=== PATIENT | male | born 1955 | race Hispanic/Latino ===

== ENCOUNTER 2022-08-19 14:55 | Emergency (ER) | payer OTHER ==
[~2022-08-19] VITALS: Ht 172.7 cm; Wt 72.6 kg
[2022-08-19 14:58] VITALS: BP 129/76
[2022-08-19] MEDS ORDERED: NAPR-1180 PO (15:20)
[2022-08-19] MEDS ORDERED: CYCL10TA16 PO (15:20)
[2022-08-19] MEDS ORDERED: CYCLOBENZAPRINE HCL 10 MG TABLET PO ONE (15:30)
[2022-08-19] MEDS ORDERED: KETOROLAC 60 MG VIAL (30MG/ML) IM ONE (15:30)
== END 2022-08-19 15:47 | disposition home or self-care (01) ==
LOC: EDH 14:55
DX: S46.911A Strain of unspecified muscle, fascia and tendon at shoulder and upper arm level, right arm, initial encounter (principal); E11.9 Type 2 diabetes mellitus without complications; E78.00 Pure hypercholesterolemia, unspecified; I11.9 Hypertensive heart disease without heart failure; E03.9 Hypothyroidism, unspecified; Z98.890 Other specified postprocedural states; X50.0XXA Overexertion from strenuous movement or load, initial encounter; Y93.89 Activity, other specified; Y92.89 Other specified places as the place of occurrence of the external cause; Y99.8 Other external cause status
CPT/HCPCS: 73030; 93005; J1885

== ENCOUNTER 2022-10-29 11:19 | Emergency (ER) | payer OTHER ==
[~2022-10-29] VITALS: Ht 172.7 cm; Wt 72.6 kg
[~2022-10-29 11:19] MED LIST: CYCL10TA16 PO; NAPR-1180 PO
[2022-10-29 12:57] LABS: BASOPHILS % (AUTO) 0.4 % (0.0-5.0); HEMATOCRIT 37.1 % (42-54); LYMPHOCYTES % (AUTO) 20.6 % (21.0-51.0); MEAN CORPUSCULAR HGB CONC 35.3 g/dL (32.0-36.0); MEAN CORPUSCULAR VOLUME 90.7 fL (79-99); MONOCYTES % (AUTO) 7.1 % (3.0-13.0); NEUTROPHILS % (AUTO) 67.6 % (40.0-77.0); PLATELET COUNT (AUTO) 139 K/uL (130-400); RED BLOOD CELL COUNT(AUTO) 4.09 MIL/uL (4.50-6.20); RED CELL DISTRIBUTION WIDTH 12.4 % (11.0-15.5); WHITE BLOOD COUNT (AUTO) 6.8 K/uL (4.8-10.8)
[2022-10-29 13:05] LABS: APPEARANCE,URINE CLEAR (CLEAR); BILIRUBIN,URINE NEGATIVE (NEGATIVE); COLOR,URINE COLORLESS (YELLOW); GLUCOSE, URINE (UA) NEGATIVE (NEGATIVE); KETONES,URINE NEGATIVE (NEGATIVE); LEUKOCYTE ESTERASE ,URINE NEGATIVE Leu/uL (NEGATIVE); NITRATE,URINE NEGATIVE (NEGATIVE); OCCULT BLOOD,URINE NEGATIVE (NEGATIVE); PH,URINE 5.5 (5.0-8.0); PROTEIN,URINE 10 mg/dL (NEGATIVE); UROBILINOGEN,URINE 0.2 mg/dL (0.2-1.0)
[2022-10-29 13:05] LABS: CARBON DIOXIDE 26 mmol/L (21-32); CHLORIDE 104 mmol/L (101-111); CREATININE 0.8 mg/dL (0.5-1.5); GLOMERULAR FILTR. RATE CALC 102 mL/min (>60); GLUCOSE,RANDOM 145 mg/dL (70-105); POTASSIUM 5.2 mmol/L (3.5-5.1); SODIUM SERUM 138 mmol/L (136-145); UREA NITROGEN, BLOOD 25 mg/dL (7-18)
[2022-10-29 13:10] LABS: ALANINE AMINOTRANSFERASE 19 U/L (12-78); TOTAL PROTEIN, SERUM 7.6 g/dL (6.0-8.3)
[2022-10-29 13:11] LABS: ALBUMIN 3.6 g/dL (3.5-5.0); ASPARTATE AMINOTRANSFERASE 18 U/L (10-37); CREATINE KINASE, TOTAL 67 U/L (21-232)
[2022-10-29 13:22] LABS: CRP QUANTITATIVE < 2.00 mg/L (0.00-9.0)
[2022-10-29] MEDS ORDERED: AMOX-426 PO (14:29)
[2022-10-29] MEDS ORDERED: CEFTRIAXONE 1G VIAL IVP ONE (14:30)
[2022-10-29 15:18] VITALS: BP 155/92
== END 2022-10-29 15:24 | disposition home or self-care (01) ==
LOC: EDH 11:19
DX: S99.922A Unspecified injury of left foot, initial encounter (principal); E11.9 Type 2 diabetes mellitus without complications; I10 Essential (primary) hypertension; Z79.1 Long term (current) use of non-steroidal anti-inflammatories (NSAID); X58.XXXA Exposure to other specified factors, initial encounter; Y93.89 Activity, other specified; Y92.89 Other specified places as the place of occurrence of the external cause; Y99.8 Other external cause status
CPT/HCPCS: 99284; 96374; 82550; 80053; 85025; 83605; 86140; 81001; 36415; 73630; J0696

== ENCOUNTER 2022-10-30 09:47 | Emergency (ER) | payer OTHER ==
[~2022-10-30] VITALS: Ht 172.7 cm; Wt 72.6 kg
[~2022-10-30 09:47] MED LIST changes: +AMOX-426 PO
[2022-10-30 11:16] VITALS: BP 112/78
== END 2022-10-30 11:19 | disposition home or self-care (01) ==
LOC: EDH 09:47
DX: Z00.00 Encounter for general adult medical examination without abnormal findings (principal); M79.675 Pain in left toe(s); I11.9 Hypertensive heart disease without heart failure; E11.9 Type 2 diabetes mellitus without complications; E78.00 Pure hypercholesterolemia, unspecified; Z85.9 Personal history of malignant neoplasm, unspecified; Z98.890 Other specified postprocedural states

== ENCOUNTER 2023-04-05 04:44 | Inpatient (IN) | payer OTHER ==
[~2023-04-05] VITALS: Ht 172.7 cm; Wt 82.5 kg
[2023-04-05] VITALS (13 sets, daily range): BP systolic 95–133; BP diastolic 49–92
[~2023-04-05 04:44] MED LIST changes: +ACET-66 PO; -AMOX-426 PO; -CYCL10TA16 PO; +LISI2.5T13 PO; +LOSA50TA64 PO; +METF-445 PO; +METO25TA6 PO; -NAPR-1180 PO; +PRAV10TA39 PO
[2023-04-05] MEDS ORDERED: ONDANSETRON 4MG INJ IVP ONE (05:00)
[2023-04-05 05:37] LABS: BASOPHILS % (AUTO) 0.1 % (0.0-5.0); EOSINOPHILS % (AUTO) 0.1 % (0.0-8.0); LYMPHOCYTES % (AUTO) 4.6 % (21.0-51.0); MEAN CORPUSCULAR HEMOGLOBIN 30.1 pg (27.0-33.0); MEAN CORPUSCULAR HGB CONC 32.4 g/dL (32.0-36.0); MEAN CORPUSCULAR VOLUME 92.9 fL (79-99); NEUTROPHILS % (AUTO) 91.5 % (40.0-77.0); PLATELET COUNT (AUTO) 177 K/uL (130-400); RED BLOOD CELL COUNT(AUTO) 1.96 MIL/uL (4.50-6.20); RED CELL DISTRIBUTION WIDTH 14.3 % (11.0-15.5)
[2023-04-05 05:39] LABS: HEMATOCRIT 18.2 % (42-54)
[2023-04-05 05:55] LABS: INR 2.54 (0.85-1.15); PARTIAL THROMBOPLASTIN TIME 66.4 SEC (26.3-35.5); PROTHROMBIN TIME 26.3 SEC (9.6-11.6)
[2023-04-05 06:15] LABS: ALBUMIN 0.8 g/dL (3.5-5.0); CHLORIDE 119 mmol/L (101-111); CREATININE 1.3 mg/dL (0.5-1.5); GLOMERULAR FILTR. RATE CALC 60 mL/min (>90); GLUCOSE,RANDOM 79 mg/dL (70-105); SODIUM SERUM 141 mmol/L (136-145); UREA NITROGEN, BLOOD 50 mg/dL (7-18)
[2023-04-05 06:20] LABS: ALANINE AMINOTRANSFERASE 64 U/L (12-78); ASPARTATE AMINOTRANSFERASE 90 U/L (10-37); CREATINE KINASE, TOTAL 17 U/L (21-232); LIPASE 184 U/L (114-286); TOTAL PROTEIN, SERUM 2.9 g/dL (6.0-8.3)
[2023-04-05] MEDS ORDERED: PHENYLEPHRINE HCL 10 MG in 0.9% NACL 250ML 250 ML IV PRN (06:30)
[2023-04-05 06:34] LABS: CARBON DIOXIDE 6 mmol/L (21-32); POTASSIUM 2.4 mmol/L (3.5-5.1)
[2023-04-05] MEDS ORDERED: CALCIUM GLUC 1GM/10ML VIAL ONE (06:39)
[2023-04-05] MEDS ORDERED: POTASSIUM CHLORIDE 20MEQ/100ML 100 ML IV ONE (06:39)
[2023-04-05] MEDS ORDERED: PHENYLEPHRINE HCL 10 MG/ML 1ML VIAL IV ONE ×4 (06:43→23:55)
[2023-04-05] MEDS ORDERED: POTASSIUM CHLORIDE 20MEQ/10ML 10 MEQ in 0.9%NACL 50ML 50 ML IV SCH ×4 (07:00)
[2023-04-05] MEDS ORDERED: VANCOMYCIN KIT 1 GM/250 ML IV.KIT IV SCH (07:00)
[2023-04-05] MEDS ORDERED: MEROPENEM 1 GM VIAL IVPB SCH (07:00)
[2023-04-05] MEDS ORDERED: 0.9%NACL 50ML IV SCH (07:00)
[2023-04-05] MEDS: POTASSIUM CHLORIDE 10MEQ/100ML 10 MEQ/100 ML ML IV SCH (07:00)
[2023-04-05] MEDS: CALCIUM GLUC 1GM/10ML VIAL IVPB SCH (07:31)
[2023-04-05 07:55] LABS: ABG BASE EXCESS -16.5 mmol/L (-2.0-3.0); ABG HCO3 8.1 mmol/L (21.0-28.0); ABG PCO2 19 mmHg (35-48)
[2023-04-05] MEDS ORDERED: SODIUM BICARB 50MEQ 50ML VIAL IV SCH (08:32)
[2023-04-05] MEDS ORDERED: SODIUM BICARB 50MEQ 50ML VIAL 50 ML ONE (08:46)
[2023-04-05] MEDS: SODIUM BICARB 8.4% 50ML SYRING 150 MEQ in DEXTROSE 5%-WATER 1,000 ML IVP SCH ×2 (08:46→18:08)
[2023-04-05] MEDS ORDERED: MORPHINE 2 MG SYG IVP PRN (09:00)
[2023-04-05] MEDS ORDERED: 0.9%NACL 1000ML 1,368 ML IV ONE (09:00)
[2023-04-05] MEDS ORDERED: INSULIN HUMULIN R 100 UNIT/ML 3ML IV SCH (09:00)
[2023-04-05] MEDS ORDERED: ACETAMINOPHEN 650 MG SUPPOSITORY RC PRN (09:00)
[2023-04-05] MEDS ORDERED: LACTULOSE 20 GM/30 ML UDCUP PO PRN (09:00)
[2023-04-05] MEDS ORDERED: DEXTROSE 50%-WATER 50 ML DISP.SYRIN IV SCH (09:00)
[2023-04-05] MEDS ORDERED: INSULIN HUMULIN R 100 UNIT/ML 3ML ONE ×2 (09:30→20:26)
[2023-04-05] MEDS ORDERED: PANTOPRAZOLE 40 MG/VIAL IVP ONE (10:05)
[2023-04-05 10:09] LABS: ABG BASE EXCESS -6.7 mmol/L (-2.0-3.0); ABG HCO3 20.3 mmol/L (21.0-28.0); ABG OXYGEN SATURATION 48.5 % (95.0-99.0); ABG PCO2 47 mmHg (35-48)
[2023-04-05] MEDS ORDERED: 0.9%NACL 1000ML 1,368 ML IV SCH (10:30)
[2023-04-05] MEDS ORDERED: PANTOPRAZOLE 40 MG/VIAL IVP SCH (10:30)
[2023-04-05] MEDS: 0.9%NACL 1000ML 1,000 ML IV SCH ×2 (10:44→18:08)
[2023-04-05 10:49] LABS: HEMATOCRIT 40.2 % (42-54)
[2023-04-05] MEDS: CEFEPIME HCL 1 GM VIAL IV SCH (10:57)
[2023-04-05] MEDS: OCTREOTIDE ACETATE 1,250 MCG in 0.9% NACL 250ML 250 ML IV SCH (10:57)
[2023-04-05 11:06] LABS: INR 2.13 (0.85-1.15); PROTHROMBIN TIME 22.2 SEC (9.6-11.6)
[2023-04-05 11:12] LABS: THYROID STIMULATING HORMONE 9.31 uIU/mL (0.36-3.74)
[2023-04-05] MEDS: VASOPRESSIN 20 UNITS in 0.9%NACL 100ML 99 ML IV PRN ×2 (11:57→13:09)
[2023-04-05] MEDS: PHENYLEPHRINE HCL 10 MG in 0.9% NACL 250ML 250 ML IV SCH (13:10)
[2023-04-05 16:14] LABS: HEMATOCRIT 52.6 % (42-54)
[2023-04-05 17:51] LABS: ABG BASE EXCESS -11.5 mmol/L (-2.0-3.0); ABG HCO3 13.9 mmol/L (21.0-28.0); ABG OXYGEN SATURATION 28.3 % (95.0-99.0); ABG PCO2 31 mmHg (35-48)
[2023-04-05 18:55] LABS: CREATININE 2.8 mg/dL (0.5-1.5); POTASSIUM 5.8 mmol/L (3.5-5.1)
[2023-04-05] MEDS ORDERED: PHYTONADIONE 10 MG in 0.9%NACL 50ML 50 ML IVPB ONE ×2 (20:00)
[2023-04-05] MEDS ORDERED: EPINEPHRINE 1 MG/ML 30ML VIAL IJ ONE (20:18)
[2023-04-05] MEDS ORDERED: CEFAZOLIN SODIUM 1 GM VIAL ONE ×2 (20:18→21:13)
[2023-04-05] MEDS ORDERED: ETOMIDATE 20MG VIAL ONE (20:23)
[2023-04-05] MEDS ORDERED: SODIUM BICARB 8.4% 50ML SYRINGE ONE (20:23)
[2023-04-05] MEDS ORDERED: DEXTROSE 50%-WATER 50 ML DISP.SYRIN IV ONE (20:27)
[2023-04-05] MEDS ORDERED: DEXTROSE 50%-WATER 50 ML DISP.SYRIN IV STA (20:35)
[2023-04-05] MEDS ORDERED: INSULIN HUMULIN R 100 UNIT/ML 3ML IV STA (20:36)
[2023-04-05] MEDS ORDERED: ROCURONIUM 10MG/1ML SYR 10 MG/ML ML ONE (21:19)
[2023-04-05] MEDS ORDERED: SUCCINYLCHOLINE CHLORIDE 20 MG/ML 10 ML VIAL ONE (21:25)
[2023-04-05] MEDS ORDERED: NOREPINEPHRINE BITARTRATE 1 MG/1 ML ML IV ONE (21:26)
[2023-04-05] MEDS ORDERED: LIDOCAINE PF 100MG/5ML (2%) SYRINGE 5ML ONE (21:26)
[2023-04-05] MEDS ORDERED: MEPERIDINE-PF 25 MG/ML SYG ONE (21:27)
[2023-04-05 22:55] LABS: BODY FLUID RBC 0 /cu. mm.; BODY FLUID WBC 1079325 /cu. mm.
[2023-04-05 22:59] LABS: APPEARANCE BODY FLUID TURBID (CLEAR); COLOR,BODY FLUID BROWN (LT YELLOW); SPECIMENTYPE,BODY FLUID PERICARDIAL; TOTAL VOLUME,BODY FLUID 50 mL
[2023-04-05 23:00] LABS: TRIGLYCERIDES,BODY FLUID 165 mg/dL
[2023-04-05] MEDS ORDERED: PHARMACY COMMUNICATION MISC SCH (23:00)
[2023-04-05 23:03] LABS: AMYLASE,BODY FLUID 8 U/L
[2023-04-05 23:05] LABS: GLUCOSE,BODY FLUID 12 mg/dL (1-40)
[2023-04-05 23:21] LABS: BASOPHILS % (AUTO) 0.2 % (0.0-5.0); LYMPHOCYTES % (AUTO) 2.6 % (21.0-51.0); MEAN CORPUSCULAR HEMOGLOBIN 29.7 pg (27.0-33.0); MEAN CORPUSCULAR HGB CONC 34.5 g/dL (32.0-36.0); MONOCYTES % (AUTO) 3.3 % (3.0-13.0); NEUTROPHILS % (AUTO) 93.3 % (40.0-77.0); PLATELET COUNT (AUTO) 236 K/uL (130-400); RED BLOOD CELL COUNT(AUTO) 4.65 MIL/uL (4.50-6.20); RED CELL DISTRIBUTION WIDTH 14.6 % (11.0-15.5); WHITE BLOOD COUNT (AUTO) 28.2 K/uL (4.8-10.8)
[2023-04-05] MEDS ORDERED: [UNRECOGNIZED DRUG - OTHER] IV SCH (23:30)
[2023-04-05] MEDS ORDERED: WATER IV SCH (23:30)
[2023-04-05 23:33] LABS: ABG BASE EXCESS -7.8 mmol/L (-2.0-3.0); ABG HCO3 15.7 mmol/L (21.0-28.0); ABG PCO2 28 mmHg (35-48)
[2023-04-05 23:39] LABS: PH, BODY FLUID 6
[2023-04-05 23:50] LABS: BF LYMPHOCYTE 38 %; BF MESOTHELIAL 55 %; BF MONOCYTE 2 %
[2023-04-06] VITALS (108 sets, daily range): BP systolic 67–298; BP diastolic 32–271
[2023-04-06] MEDS: PHENYLEPHRINE HCL 10 MG in 0.9% NACL 250ML 250 ML IV SCH ×2 (00:01→13:34)
[2023-04-06] MEDS: PANTOPRAZOLE 40 MG/VIAL IVP SCH ×3 (00:36→20:50)
[2023-04-06] MEDS: CEFEPIME HCL 1 GM VIAL IV SCH ×3 (00:37→20:49)
[2023-04-06 00:46] LABS: ABG HCO3 15.8 mmol/L (21.0-28.0); ABG OXYGEN SATURATION 97.2 % (95.0-99.0); ABG PCO2 26 mmHg (35-48)
[2023-04-06] MEDS ORDERED: SODIUM BICARB 50MEQ 50ML VIAL 50 ML ONE (00:49)
[2023-04-06 00:51] LABS: BASOPHILS % (AUTO) 0.2 % (0.0-5.0); HEMATOCRIT 40.7 % (42-54); MEAN CORPUSCULAR HEMOGLOBIN 29.6 pg (27.0-33.0); MEAN CORPUSCULAR HGB CONC 34.9 g/dL (32.0-36.0); MONOCYTES % (AUTO) 2.8 % (3.0-13.0); NEUTROPHILS % (AUTO) 93.3 % (40.0-77.0); PLATELET COUNT (AUTO) 228 K/uL (130-400); RED BLOOD CELL COUNT(AUTO) 4.79 MIL/uL (4.50-6.20); RED CELL DISTRIBUTION WIDTH 14.6 % (11.0-15.5); WHITE BLOOD COUNT (AUTO) 29.1 K/uL (4.8-10.8)
[2023-04-06] MEDS: SODIUM BICARB 8.4% 50ML SYRING 150 MEQ in DEXTROSE 5%-WATER 1,000 ML IVP SCH ×3 (00:57→14:42)
[2023-04-06] MEDS: 0.9%NACL 1000ML 1,000 ML IV SCH (01:00)
[2023-04-06 01:07] LABS: CREATININE 2.5 mg/dL (0.5-1.5); POTASSIUM 4.2 mmol/L (3.5-5.1)
[2023-04-06 01:30] LABS: ALBUMIN 1.7 g/dL (3.5-5.0); MAGNESIUM 1.8 mg/dL (1.80-2.40); TOTAL PROTEIN, SERUM 5.8 g/dL (6.0-8.3)
[2023-04-06 01:48] LABS: ABG BASE EXCESS -6.5 mmol/L (-2.0-3.0); ABG HCO3 16.2 mmol/L (21.0-28.0); ABG OXYGEN SATURATION 97.5 % (95.0-99.0); ABG PCO2 26 mmHg (35-48)
[2023-04-06 02:43] LABS: ABG BASE EXCESS -5.5 mmol/L (-2.0-3.0); ABG HCO3 17.4 mmol/L (21.0-28.0); ABG OXYGEN SATURATION 98.8 % (95.0-99.0); ABG PCO2 28 mmHg (35-48)
[2023-04-06 03:23] LABS: BASOPHILS % (AUTO) 0.3 % (0.0-5.0); LYMPHOCYTES % (AUTO) 4.3 % (21.0-51.0); MEAN CORPUSCULAR HEMOGLOBIN 29.3 pg (27.0-33.0); MEAN CORPUSCULAR HGB CONC 34.3 g/dL (32.0-36.0); MEAN CORPUSCULAR VOLUME 85.5 fL (79-99); MONOCYTES % (AUTO) 2.1 % (3.0-13.0); NEUTROPHILS % (AUTO) 90.6 % (40.0-77.0); PLATELET COUNT (AUTO) 249 K/uL (130-400); RED BLOOD CELL COUNT(AUTO) 4.91 MIL/uL (4.50-6.20); RED CELL DISTRIBUTION WIDTH 14.6 % (11.0-15.5)
[2023-04-06] MEDS ORDERED: LACTATED RINGERS 1000ML IV ONE (03:30)
[2023-04-06 03:44] LABS: ABG BASE EXCESS -6.2 mmol/L (-2.0-3.0); ABG HCO3 17.3 mmol/L (21.0-28.0); ABG PCO2 29 mmHg (35-48)
[2023-04-06 05:03] LABS: ABG BASE EXCESS -4.1 mmol/L (-2.0-3.0); ABG HCO3 17.8 mmol/L (21.0-28.0); ABG OXYGEN SATURATION 97.7 % (95.0-99.0); ABG PCO2 25 mmHg (35-48)
[2023-04-06] MEDS ORDERED: ALBUMIN (HUMAN) 25% 100 ML IV ONE ×2 (06:04→12:00)
[2023-04-06] MEDS ORDERED: 0.9% NACL 250ML 250 ML IV SCH (07:00)
[2023-04-06] MEDS ORDERED: VANCOMYCIN 750MG VIAL IVPB SCH (07:00)
[2023-04-06] MEDS ORDERED: PHARMACY COMMUNICATION MISC SCH (07:30)
[2023-04-06 08:24] LABS: INR 2.24 (0.85-1.15); PROTHROMBIN TIME 23.3 SEC (9.6-11.6)
[2023-04-06] MEDS ORDERED: RENAL DOSE IV SCH (09:00)
[2023-04-06 12:11] LABS: HEMATOCRIT 37.9 % (42-54)
[2023-04-06 12:19] LABS: CREATININE 2.2 mg/dL (0.5-1.5); POTASSIUM 3.9 mmol/L (3.5-5.1)
[2023-04-06] MEDS: POTASSIUM CHLORIDE 10MEQ/100ML 10 MEQ/100 ML ML IV SCH (17:12)
[2023-04-06] MEDS ORDERED: [UNRECOGNIZED DRUG - OTHER] IV SCH ×3 (17:45)
[2023-04-06] MEDS ORDERED: VANCOMYCIN IV SCH ×3 (17:45)
[2023-04-06 19:11] LABS: CREATININE 1.9 mg/dL (0.5-1.5); POTASSIUM 3.9 mmol/L (3.5-5.1)
[2023-04-06 23:23] LABS: HEMATOCRIT 35.4 % (42-54)
[2023-04-07] VITALS (58 sets, daily range): BP systolic 91–128; BP diastolic 51–75
[2023-04-07 03:34] LABS: ABG BASE EXCESS 5.5 mmol/L (-2.0-3.0); ABG HCO3 27.9 mmol/L (21.0-28.0); ABG OXYGEN SATURATION 93.5 % (95.0-99.0); ABG PCO2 34 mmHg (35-48)
[2023-04-07 05:56] LABS: BASOPHILS % (AUTO) 0.1 % (0.0-5.0); EOSINOPHILS % (AUTO) 0.4 % (0.0-8.0); HEMATOCRIT 36.3 % (42-54); MEAN CORPUSCULAR HEMOGLOBIN 29.3 pg (27.0-33.0); MEAN CORPUSCULAR HGB CONC 33.6 g/dL (32.0-36.0); MEAN CORPUSCULAR VOLUME 87.1 fL (79-99); MONOCYTES % (AUTO) 2.8 % (3.0-13.0); NEUTROPHILS % (AUTO) 90.1 % (40.0-77.0); PLATELET COUNT (AUTO) 170 K/uL (130-400); RED BLOOD CELL COUNT(AUTO) 4.17 MIL/uL (4.50-6.20); RED CELL DISTRIBUTION WIDTH 14.4 % (11.0-15.5)
[2023-04-07 06:13] LABS: ALBUMIN 1.7 g/dL (3.5-5.0); CREATININE 1.7 mg/dL (0.5-1.5); POTASSIUM 3.5 mmol/L (3.5-5.1); TOTAL PROTEIN, SERUM 5.2 g/dL (6.0-8.3)
[2023-04-07] MEDS ORDERED: GLUCAGON 1MG KIT 1 MG ML IM PRN (07:00)
[2023-04-07] MEDS ORDERED: DEXTROSE 50%-WATER 50 ML DISP.SYRIN IV PRN (07:00)
[2023-04-07] MEDS: CEFEPIME HCL 1 GM VIAL IV SCH ×2 (07:51→20:32)
[2023-04-07] MEDS: PANTOPRAZOLE 40 MG/VIAL IVP SCH ×2 (07:51→20:32)
[2023-04-07] MEDS: INSULIN HUMULIN R 100 UNIT/ML 3ML SQ SCH ×4 (07:52→20:33)
[2023-04-07] MEDS: VANCOMYCIN 500MG+NS 100ML 100 ML IV SCH (07:52)
[2023-04-07] MEDS: OCTREOTIDE ACETATE 1,250 MCG in 0.9% NACL 250ML 250 ML IV SCH (07:56)
[2023-04-07] MEDS: PHENYLEPHRINE HCL 10 MG in 0.9% NACL 250ML 250 ML IV SCH (08:01)
[2023-04-07] MEDS: SODIUM BICARB 8.4% 50ML SYRING 150 MEQ in DEXTROSE 5%-WATER 1,000 ML IVP SCH (09:38)
[2023-04-07] MEDS ORDERED: MIDODRINE HCL 5 MG TABLET ONE (11:01)
[2023-04-07] MEDS: ACETAMINOPHEN 325 MG TAB PO PRN (11:05)
[2023-04-07] MEDS ORDERED: MIDODRINE HCL 5 MG TABLET PO SCH (11:30)
[2023-04-07] MEDS ORDERED: POTASSIUM CHLORIDE 10% ELIXIR 20 MEQ/15 ML UDCUP PO SCH (11:30)
[2023-04-07 15:37] LABS: CREATININE 1.4 mg/dL (0.5-1.5); MAGNESIUM 1.5 mg/dL (1.80-2.40); POTASSIUM 3.6 mmol/L (3.5-5.1)
[2023-04-07] MEDS: MAGNESIUM 2GM PREMIX 50ML 50 ML IV PRN (17:16)
[2023-04-07] MEDS: HEPARIN 25,000 UNITS/250ML D5W 250 ML IV SCH (18:24)
[2023-04-07] MEDS ORDERED: HEPARIN 5,000 UNIT VIAL ONE (20:23)
[2023-04-07] MEDS ORDERED: HEPARIN 5,000 UNIT VIAL IV ONE (20:30)
[2023-04-07] MEDS: MIDODRINE HCL 5 MG TABLET PO SCH (20:33)
[2023-04-08] VITALS (24 sets, daily range): BP systolic 104–142; BP diastolic 60–94
[2023-04-08 00:01] LABS: ABG BASE EXCESS 5.8 mmol/L (-2.0-3.0); ABG HCO3 29.9 mmol/L (21.0-28.0); ABG OXYGEN SATURATION 93.9 % (95.0-99.0); ABG PCO2 42 mmHg (35-48)
[2023-04-08 02:24] LABS: BASOPHILS % (AUTO) 0.1 % (0.0-5.0); EOSINOPHILS % (AUTO) 0.6 % (0.0-8.0); HEMATOCRIT 37.7 % (42-54); LYMPHOCYTES % (AUTO) 6.4 % (21.0-51.0); MEAN CORPUSCULAR HEMOGLOBIN 29.6 pg (27.0-33.0); MEAN CORPUSCULAR HGB CONC 33.4 g/dL (32.0-36.0); MEAN CORPUSCULAR VOLUME 88.7 fL (79-99); MONOCYTES % (AUTO) 3.3 % (3.0-13.0); NEUTROPHILS % (AUTO) 89.1 % (40.0-77.0); PLATELET COUNT (AUTO) 125 K/uL (130-400); RED BLOOD CELL COUNT(AUTO) 4.25 MIL/uL (4.50-6.20); RED CELL DISTRIBUTION WIDTH 14.2 % (11.0-15.5); WHITE BLOOD COUNT (AUTO) 14.2 K/uL (4.8-10.8)
[2023-04-08 02:49] LABS: ALBUMIN 1.8 g/dL (3.5-5.0); CREATININE 1.2 mg/dL (0.5-1.5); POTASSIUM 3.7 mmol/L (3.5-5.1); TOTAL PROTEIN, SERUM 5.7 g/dL (6.0-8.3)
[2023-04-08] MEDS: MAGNESIUM 2GM PREMIX 50ML 50 ML IV PRN (05:39)
[2023-04-08] MEDS: INSULIN HUMULIN R 100 UNIT/ML 3ML SQ SCH ×4 (06:16→20:24)
[2023-04-08] MEDS: PANTOPRAZOLE 40 MG/VIAL IVP SCH ×2 (07:38→20:24)
[2023-04-08] MEDS: CEFEPIME HCL 1 GM VIAL IV SCH (07:38)
[2023-04-08] MEDS: VANCOMYCIN 500MG+NS 100ML 100 ML IV SCH (07:38)
[2023-04-08] MEDS: ACETAMINOPHEN 325 MG TAB PO PRN (07:39)
[2023-04-08] MEDS: MIDODRINE HCL 5 MG TABLET PO SCH ×3 (07:40→20:24)
[2023-04-08] MEDS ORDERED: CALCIUM GLUC 1GM/10ML VIAL IVPB SCH (10:30)
[2023-04-08] MEDS: CALCIUM GLUC 1GM/10ML VIAL IVPB SCH (10:39)
[2023-04-08] MEDS ORDERED: FUROSEMIDE 40MG VIAL IV SCH (11:30)
[2023-04-08 12:42] LABS: INR 1.89 (0.85-1.15); PROTHROMBIN TIME 19.9 SEC (9.6-11.6)
[2023-04-08] MEDS: NAFCILLIN 2GM+ NS 100ML 100 ML IV SCH ×4 (13:10→23:04)
[2023-04-08] MEDS ORDERED: PHARMACY COMMUNICATION MISC SCH (14:30)
[2023-04-08] MEDS: [UNRECOGNIZED DRUG - OTHER] IV SCH ×3 (15:44)
[2023-04-08] MEDS: VANCOMYCIN IV SCH ×3 (15:44)
[2023-04-08] MEDS: HEPARIN 25,000 UNITS/250ML D5W 250 ML IV SCH (21:34)
[2023-04-09] VITALS (11 sets, daily range): BP systolic 99–117; BP diastolic 58–75
[2023-04-09 00:24] LABS: APPEARANCE,URINE CLEAR (CLEAR); BILIRUBIN,URINE NEGATIVE (NEGATIVE); COLOR,URINE LIGHT-YELLOW (YELLOW); GLUCOSE, URINE (UA) NEGATIVE (NEGATIVE); KETONES,URINE NEGATIVE (NEGATIVE); LEUKOCYTE ESTERASE ,URINE 25 Leu/uL (NEGATIVE); NITRATE,URINE NEGATIVE (NEGATIVE); OCCULT BLOOD,URINE SMALL (NEGATIVE); PH,URINE 6.5 (5.0-8.0); PROTEIN,URINE NEGATIVE (NEGATIVE); UROBILINOGEN,URINE 0.2 mg/dL (0.2-1.0)
[2023-04-09 00:29] LABS: MUCUS,URINE RARE LPF (None Seen)
[2023-04-09 00:47] LABS: SQUAMOUS EPITHELIAL CELL,UR Few /HPF (0-2)
[2023-04-09 01:23] LABS: ABG BASE EXCESS 7.4 mmol/L (-2.0-3.0); ABG HCO3 31.2 mmol/L (21.0-28.0); ABG OXYGEN SATURATION 96.9 % (95.0-99.0); ABG PCO2 41 mmHg (35-48)
[2023-04-09 01:25] LABS: ABG BASE EXCESS 8.7 mmol/L (-2.0-3.0); ABG HCO3 32.7 mmol/L (21.0-28.0); ABG OXYGEN SATURATION 96.6 % (95.0-99.0); ABG PCO2 42 mmHg (35-48)
[2023-04-09] MEDS: NAFCILLIN 2GM+ NS 100ML 100 ML IV SCH ×5 (03:06→18:54)
[2023-04-09 03:53] LABS: BASOPHILS % (AUTO) 0.2 % (0.0-5.0); EOSINOPHILS % (AUTO) 1.9 % (0.0-8.0); HEMATOCRIT 38.1 % (42-54); LYMPHOCYTES % (AUTO) 10.5 % (21.0-51.0); MEAN CORPUSCULAR HEMOGLOBIN 29.6 pg (27.0-33.0); MEAN CORPUSCULAR HGB CONC 32.5 g/dL (32.0-36.0); MEAN CORPUSCULAR VOLUME 90.9 fL (79-99); MONOCYTES % (AUTO) 5.2 % (3.0-13.0); NEUTROPHILS % (AUTO) 81.7 % (40.0-77.0); PLATELET COUNT (AUTO) 104 K/uL (130-400); RED BLOOD CELL COUNT(AUTO) 4.19 MIL/uL (4.50-6.20); RED CELL DISTRIBUTION WIDTH 14.2 % (11.0-15.5); WHITE BLOOD COUNT (AUTO) 11.6 K/uL (4.8-10.8)
[2023-04-09 04:13] LABS: ALBUMIN 1.6 g/dL (3.5-5.0); CREATININE 1.1 mg/dL (0.5-1.5); POTASSIUM 3.3 mmol/L (3.5-5.1); TOTAL PROTEIN, SERUM 5.3 g/dL (6.0-8.3)
[2023-04-09] MEDS ORDERED: POTASSIUM CHLORIDE 20MEQ/100ML 100 ML IV ONE (05:02)
[2023-04-09] MEDS: CALCIUM GLUC 1GM/10ML VIAL IVPB SCH (05:07)
[2023-04-09] MEDS: MAGNESIUM 2GM PREMIX 50ML 50 ML IV PRN (05:31)
[2023-04-09] MEDS: ACETAMINOPHEN 325 MG TAB PO PRN (06:53)
[2023-04-09] MEDS: INSULIN HUMULIN R 100 UNIT/ML 3ML SQ SCH ×4 (07:30→21:41)
[2023-04-09] MEDS: PANTOPRAZOLE 40 MG/VIAL IVP SCH ×2 (09:25→21:39)
[2023-04-09] MEDS: MIDODRINE HCL 5 MG TABLET PO SCH ×3 (09:25→21:39)
[2023-04-09] MEDS: POTASSIUM CHLORIDE 20MEQ/100ML 100 ML IV PRN (15:19)
[2023-04-09] MEDS: VANCOMYCIN IV SCH ×3 (15:22)
[2023-04-09] MEDS: [UNRECOGNIZED DRUG - OTHER] IV SCH ×3 (15:22)
[2023-04-10 00:24] VITALS: BP 119/76
[2023-04-10] MEDS: NAFCILLIN 2GM+ NS 100ML 100 ML IV SCH ×6 (01:16→21:21)
[2023-04-10 03:21] VITALS: BP 141/81
[2023-04-10 03:31] LABS: ABG BASE EXCESS 5.5 mmol/L (-2.0-3.0); ABG HCO3 28.3 mmol/L (21.0-28.0); ABG OXYGEN SATURATION 98.7 % (95.0-99.0); ABG PCO2 36 mmHg (35-48)
[2023-04-10 03:51] LABS: HEMATOCRIT 41.8 % (42-54); MEAN CORPUSCULAR HEMOGLOBIN 29.3 pg (27.0-33.0); MEAN CORPUSCULAR HGB CONC 32.1 g/dL (32.0-36.0); MEAN CORPUSCULAR VOLUME 91.3 fL (79-99); RED BLOOD CELL COUNT(AUTO) 4.58 MIL/uL (4.50-6.20); RED CELL DISTRIBUTION WIDTH 14.3 % (11.0-15.5); WHITE BLOOD COUNT (AUTO) 13.9 K/uL (4.8-10.8)
[2023-04-10 04:13] LABS: ALBUMIN 1.6 g/dL (3.5-5.0); CREATININE 1.2 mg/dL (0.5-1.5); MAGNESIUM 1.6 mg/dL (1.80-2.40); POTASSIUM 3.4 mmol/L (3.5-5.1); TOTAL PROTEIN, SERUM 5.7 g/dL (6.0-8.3)
[2023-04-10] MEDS: POTASSIUM CHLORIDE 20MEQ/100ML 100 ML IV PRN ×3 (06:18→18:12)
[2023-04-10] MEDS: MAGNESIUM 2GM PREMIX 50ML 50 ML IV SCH (06:18)
[2023-04-10] MEDS: HEPARIN 25,000 UNITS/250ML D5W 250 ML IV SCH (06:23)
[2023-04-10 07:00] VITALS: BP 121/75
[2023-04-10] MEDS: INSULIN HUMULIN R 100 UNIT/ML 3ML SQ SCH ×4 (07:30→21:51)
[2023-04-10] MEDS ORDERED: PHARMACY COMMUNICATION MISC SCH (09:30)
[2023-04-10] MEDS ORDERED: GENTAMICIN 120 MG IN 100ML NS 100 ML IV SCH (10:00)
[2023-04-10] MEDS: PANTOPRAZOLE 40 MG/VIAL IVP SCH ×2 (10:40→21:21)
[2023-04-10] MEDS: MIDODRINE HCL 5 MG TABLET PO SCH ×3 (10:40→21:21)
[2023-04-10 11:00] VITALS: BP 111/86
[2023-04-10] MEDS: GENTAMICIN 120 MG IN 100ML NS 100 ML IV SCH (13:53)
[2023-04-10 16:00] VITALS: BP 111/70
[2023-04-10] MEDS: VANCOMYCIN IV SCH ×3 (18:07)
[2023-04-10] MEDS: [UNRECOGNIZED DRUG - OTHER] IV SCH ×3 (18:07)
[2023-04-10 19:12] VITALS: BP 117/69
[2023-04-11 00:12] VITALS: BP 131/73
[2023-04-11] MEDS: NAFCILLIN 2GM+ NS 100ML 100 ML IV SCH ×6 (00:32→21:46)
[2023-04-11] MEDS: GENTAMICIN 120 MG IN 100ML NS 100 ML IV SCH ×2 (00:32→12:58)
[2023-04-11 03:12] VITALS: BP 124/72
[2023-04-11 04:16] LABS: BASOPHILS % (AUTO) 0.2 % (0.0-5.0); EOSINOPHILS % (AUTO) 0.6 % (0.0-8.0); HEMATOCRIT 41.2 % (42-54); LYMPHOCYTES % (AUTO) 7.9 % (21.0-51.0); MEAN CORPUSCULAR HEMOGLOBIN 29.2 pg (27.0-33.0); MEAN CORPUSCULAR HGB CONC 31.6 g/dL (32.0-36.0); MEAN CORPUSCULAR VOLUME 92.6 fL (79-99); MONOCYTES % (AUTO) 4.9 % (3.0-13.0); NEUTROPHILS % (AUTO) 85.8 % (40.0-77.0); PLATELET COUNT (AUTO) 109 K/uL (130-400); RED BLOOD CELL COUNT(AUTO) 4.45 MIL/uL (4.50-6.20); RED CELL DISTRIBUTION WIDTH 14.4 % (11.0-15.5); WHITE BLOOD COUNT (AUTO) 17.7 K/uL (4.8-10.8)
[2023-04-11 04:27] LABS: ALBUMIN 1.5 g/dL (3.5-5.0); CREATININE 0.9 mg/dL (0.5-1.5); MAGNESIUM 1.5 mg/dL (1.80-2.40); POTASSIUM 3.2 mmol/L (3.5-5.1); TOTAL PROTEIN, SERUM 5.5 g/dL (6.0-8.3)
[2023-04-11 04:33] LABS: INR 1.36 (0.85-1.15); PROTHROMBIN TIME 14.6 SEC (9.6-11.6)
[2023-04-11 04:34] LABS: PARTIAL THROMBOPLASTIN TIME 32.8 SEC (26.3-35.5)
[2023-04-11] MEDS: MAGNESIUM 2GM PREMIX 50ML 50 ML IV SCH (05:17)
[2023-04-11] MEDS: POTASSIUM CHLORIDE 20MEQ/100ML 100 ML IV PRN (06:40)
[2023-04-11] MEDS: INSULIN HUMULIN R 100 UNIT/ML 3ML SQ SCH ×4 (07:30→20:30)
[2023-04-11 08:46] VITALS: BP 118/71
[2023-04-11] MEDS: FONDAPARINUX SODIUM 7.5 MG/0.6 ML SQ SCH (09:00)
[2023-04-11] MEDS: MIDODRINE HCL 5 MG TABLET PO SCH ×3 (09:17→20:29)
[2023-04-11] MEDS: PANTOPRAZOLE 40 MG/VIAL IVP SCH ×2 (09:17→20:29)
[2023-04-11 11:27] VITALS: BP 122/74
[2023-04-11] MEDS ORDERED: MIDAZOLAM HCL 1 MG/ML 2ML VIAL IVP ONE ×2 (12:30→13:00)
[2023-04-11] MEDS ORDERED: LIDOCAINE HCL 2% VISCOUS 15 ML UDCUP PO ONE (12:30)
[2023-04-11] MEDS ORDERED: FENTANYL CITRATE PF 50 MCG/1 ML 2ML VIAL IVP ONE (13:00)
[2023-04-11] MEDS ORDERED: NALOXONE HCL 0.4 MG/1 ML ML ONE (14:44)
[2023-04-11 17:06] VITALS: BP 107/62
[2023-04-11] MEDS: VANCOMYCIN IV SCH ×3 (18:11)
[2023-04-11] MEDS: [UNRECOGNIZED DRUG - OTHER] IV SCH ×3 (18:11)
[2023-04-11 19:00] VITALS: BP 119/78
[2023-04-12] VITALS: BP 109/54
[2023-04-12] MEDS: NAFCILLIN 2GM+ NS 100ML 100 ML IV SCH ×7 (01:04→23:20)
[2023-04-12] MEDS: GENTAMICIN 120 MG IN 100ML NS 100 ML IV SCH ×2 (01:55→13:10)
[2023-04-12 04:00] VITALS: BP 118/72
[2023-04-12 04:58] LABS: ALBUMIN 1.4 g/dL (3.5-5.0); POTASSIUM 3.4 mmol/L (3.5-5.1); TOTAL PROTEIN, SERUM 5.3 g/dL (6.0-8.3)
[2023-04-12 04:59] LABS: MEAN CORPUSCULAR HEMOGLOBIN 29.3 pg (27.0-33.0); MEAN CORPUSCULAR HGB CONC 31.9 g/dL (32.0-36.0); MEAN CORPUSCULAR VOLUME 92.1 fL (79-99); RED BLOOD CELL COUNT(AUTO) 4.67 MIL/uL (4.50-6.20); RED CELL DISTRIBUTION WIDTH 14.6 % (11.0-15.5); WHITE BLOOD COUNT (AUTO) 15.5 K/uL (4.8-10.8)
[2023-04-12] MEDS: POTASSIUM CHLORIDE 20MEQ/100ML 100 ML IV PRN (06:07)
[2023-04-12] MEDS: INSULIN HUMULIN R 100 UNIT/ML 3ML SQ SCH ×4 (06:38→21:15)
[2023-04-12] MEDS: FONDAPARINUX SODIUM 7.5 MG/0.6 ML SQ SCH (08:06)
[2023-04-12] MEDS: MIDODRINE HCL 5 MG TABLET PO SCH ×3 (08:06→20:10)
[2023-04-12] MEDS: PANTOPRAZOLE 40 MG/VIAL IVP SCH ×2 (08:06→20:10)
[2023-04-12 08:14] VITALS: BP 104/66
[2023-04-12] MEDS ORDERED: PHARMACY COMMUNICATION MISC SCH (11:00)
[2023-04-12 12:01] VITALS: BP 107/71
[2023-04-12 16:28] VITALS: BP 103/69
[2023-04-12 19:58] VITALS: BP 122/86
[2023-04-12] MEDS: VANCOMYCIN IV SCH ×3 (21:16)
[2023-04-12] MEDS: [UNRECOGNIZED DRUG - OTHER] IV SCH ×3 (21:16)
[2023-04-13 00:51] VITALS: BP 136/75
[2023-04-13] MEDS: GENTAMICIN 120 MG IN 100ML NS 100 ML IV SCH ×2 (01:23→13:56)
[2023-04-13 04:18] VITALS: BP 132/74
[2023-04-13] MEDS: NAFCILLIN 2GM+ NS 100ML 100 ML IV SCH ×6 (04:18→23:45)
[2023-04-13 05:01] LABS: HEMATOCRIT 37.6 % (42-54); MEAN CORPUSCULAR HEMOGLOBIN 28.9 pg (27.0-33.0); MEAN CORPUSCULAR HGB CONC 31.6 g/dL (32.0-36.0); MEAN CORPUSCULAR VOLUME 91.3 fL (79-99); RED BLOOD CELL COUNT(AUTO) 4.12 MIL/uL (4.50-6.20); RED CELL DISTRIBUTION WIDTH 14.7 % (11.0-15.5); WHITE BLOOD COUNT (AUTO) 12.5 K/uL (4.8-10.8)
[2023-04-13 05:30] LABS: ALBUMIN 1.3 g/dL (3.5-5.0); CREATININE 1.1 mg/dL (0.5-1.5); MAGNESIUM 1.4 mg/dL (1.80-2.40); TOTAL PROTEIN, SERUM 5.1 g/dL (6.0-8.3)
[2023-04-13 05:35] LABS: POTASSIUM 2.8 mmol/L (3.5-5.1)
[2023-04-13] MEDS: POTASSIUM CHLORIDE 20MEQ/100ML 100 ML IV PRN ×4 (05:38→23:54)
[2023-04-13] MEDS: MAGNESIUM 2GM PREMIX 50ML 50 ML IV SCH (05:46)
[2023-04-13] MEDS: INSULIN HUMULIN R 100 UNIT/ML 3ML SQ SCH ×4 (06:26→20:24)
[2023-04-13 08:12] VITALS: BP 127/74
[2023-04-13] MEDS: PANTOPRAZOLE 40 MG/VIAL IVP SCH ×2 (10:26→20:22)
[2023-04-13] MEDS: MIDODRINE HCL 5 MG TABLET PO SCH ×3 (10:27→20:23)
[2023-04-13] MEDS: FONDAPARINUX SODIUM 7.5 MG/0.6 ML SQ SCH (10:27)
[2023-04-13 12:39] VITALS: BP 125/58
[2023-04-13] MEDS: [UNRECOGNIZED DRUG - OTHER] IV SCH ×3 (14:04)
[2023-04-13] MEDS: VANCOMYCIN IV SCH ×3 (14:04)
[2023-04-13 16:28] VITALS: BP 118/63
[2023-04-13 20:00] VITALS: BP 117/73
[2023-04-14] VITALS: BP 127/72
[2023-04-14] MEDS: NAFCILLIN 2GM+ NS 100ML 100 ML IV SCH ×5 (03:25→20:20)
[2023-04-14 03:41] LABS: HEMATOCRIT 39.8 % (42-54); MEAN CORPUSCULAR HGB CONC 31.7 g/dL (32.0-36.0); MEAN CORPUSCULAR VOLUME 91.5 fL (79-99); RED BLOOD CELL COUNT(AUTO) 4.35 MIL/uL (4.50-6.20); RED CELL DISTRIBUTION WIDTH 14.7 % (11.0-15.5)
[2023-04-14 03:59] LABS: ALBUMIN 1.4 g/dL (3.5-5.0); MAGNESIUM 1.3 mg/dL (1.80-2.40); POTASSIUM 3.2 mmol/L (3.5-5.1); TOTAL PROTEIN, SERUM 5.3 g/dL (6.0-8.3)
[2023-04-14 04:00] VITALS: BP 132/63
[2023-04-14] MEDS: POTASSIUM CHLORIDE 20MEQ/100ML 100 ML IV PRN ×2 (04:32→20:21)
[2023-04-14] MEDS: INSULIN HUMULIN R 100 UNIT/ML 3ML SQ SCH ×4 (05:38→20:08)
[2023-04-14] MEDS: MAGNESIUM 2GM PREMIX 50ML 50 ML IV SCH (06:14)
[2023-04-14 07:53] VITALS: BP 110/65
[2023-04-14] MEDS ORDERED: POTASSIUM CHLORIDE 20 MEQ/100 ML BAG IV SCH (08:00)
[2023-04-14] MEDS ORDERED: KCL 20 MEQ ERTAB PO ONE (08:00)
[2023-04-14] MEDS ORDERED: MAGNESIUM 2GM PREMIX 50ML 50 ML IV SCH ×2 (08:00)
[2023-04-14] MEDS: PANTOPRAZOLE 40 MG/VIAL IVP SCH ×2 (08:17→20:20)
[2023-04-14] MEDS: MIDODRINE HCL 5 MG TABLET PO SCH ×3 (08:19→20:20)
[2023-04-14] MEDS: FONDAPARINUX SODIUM 7.5 MG/0.6 ML SQ SCH (08:20)
[2023-04-14 11:38] VITALS: BP 113/62
[2023-04-14] MEDS: SIMETHICONE 80 MG TAB.CHEW PO SCH ×2 (13:52→20:20)
[2023-04-14] MEDS: GENTAMICIN 120 MG IN 100ML NS 100 ML IV SCH (14:47)
[2023-04-14] MEDS: VANCOMYCIN IV SCH ×3 (15:00)
[2023-04-14] MEDS: [UNRECOGNIZED DRUG - OTHER] IV SCH ×3 (15:00)
[2023-04-14 16:21] VITALS: BP 97/69
[2023-04-14 20:00] VITALS: BP 114/66
[2023-04-15] VITALS: BP 103/71
[2023-04-15] MEDS: NAFCILLIN 2GM+ NS 100ML 100 ML IV SCH ×7 (00:29→23:41)
[2023-04-15 03:54] VITALS: BP 127/63
[2023-04-15 04:29] LABS: POTASSIUM 3.9 mmol/L (3.5-5.1)
[2023-04-15 04:45] LABS: ALBUMIN 1.3 g/dL (3.5-5.0); TOTAL PROTEIN, SERUM 5.1 g/dL (6.0-8.3)
[2023-04-15] MEDS: INSULIN HUMULIN R 100 UNIT/ML 3ML SQ SCH ×4 (05:46→21:37)
[2023-04-15 07:28] VITALS: BP 120/66
[2023-04-15] MEDS: SIMETHICONE 80 MG TAB.CHEW PO SCH ×3 (08:43→20:16)
[2023-04-15] MEDS: MIDODRINE HCL 5 MG TABLET PO SCH ×3 (08:43→21:00)
[2023-04-15] MEDS: PANTOPRAZOLE 40 MG/VIAL IVP SCH ×2 (08:43→20:16)
[2023-04-15] MEDS: BALSAM PERU/CASTOR OIL 60 GM TUBE TP SCH ×3 (09:00→21:41)
[2023-04-15] MEDS: FONDAPARINUX SODIUM 7.5 MG/0.6 ML SQ SCH (09:06)
[2023-04-15 12:00] VITALS: BP 104/68
[2023-04-15] MEDS: GENTAMICIN 120 MG IN 100ML NS 100 ML IV SCH (14:34)
[2023-04-15 16:00] VITALS: BP 141/80
[2023-04-15] MEDS ORDERED: ONDANSETRON 4MG INJ IVP PRN (17:00)
[2023-04-15 19:12] VITALS: BP 108/67
[2023-04-16] VITALS (8 sets, daily range): BP systolic 109–147; BP diastolic 65–76
[2023-04-16] MEDS: NAFCILLIN 2GM+ NS 100ML 100 ML IV SCH ×6 (03:57→23:54)
[2023-04-16 04:34] LABS: HEMATOCRIT 36.1 % (42-54); MEAN CORPUSCULAR HEMOGLOBIN 29.1 pg (27.0-33.0); MEAN CORPUSCULAR HGB CONC 32.1 g/dL (32.0-36.0); MEAN CORPUSCULAR VOLUME 90.5 fL (79-99); RED BLOOD CELL COUNT(AUTO) 3.99 MIL/uL (4.50-6.20); RED CELL DISTRIBUTION WIDTH 14.9 % (11.0-15.5); WHITE BLOOD COUNT (AUTO) 10.1 K/uL (4.8-10.8)
[2023-04-16 05:03] LABS: ALBUMIN 1.2 g/dL (3.5-5.0); CREATININE 1.1 mg/dL (0.5-1.5); MAGNESIUM 1.2 mg/dL (1.80-2.40); POTASSIUM 3.3 mmol/L (3.5-5.1); TOTAL PROTEIN, SERUM 5.1 g/dL (6.0-8.3)
[2023-04-16] MEDS: INSULIN HUMULIN R 100 UNIT/ML 3ML SQ SCH ×4 (05:39→20:53)
[2023-04-16] MEDS: POTASSIUM CHLORIDE 20MEQ/100ML 100 ML IV PRN ×2 (06:02→10:20)
[2023-04-16] MEDS: MAGNESIUM 2GM PREMIX 50ML 50 ML IV SCH ×2 (06:03→14:08)
[2023-04-16] MEDS: PANTOPRAZOLE 40 MG/VIAL IVP SCH ×2 (09:48→20:53)
[2023-04-16] MEDS: MIDODRINE HCL 5 MG TABLET PO SCH ×3 (09:48→20:53)
[2023-04-16] MEDS: FONDAPARINUX SODIUM 7.5 MG/0.6 ML SQ SCH (09:49)
[2023-04-16] MEDS: SIMETHICONE 80 MG TAB.CHEW PO SCH ×3 (09:49→20:53)
[2023-04-16] MEDS: BALSAM PERU/CASTOR OIL 60 GM TUBE TP SCH ×3 (09:50→20:54)
[2023-04-16] MEDS ORDERED: METOPROLOL TARTRATE 1 MG/ML 5ML VIAL IV ONE (10:00)
[2023-04-16 12:51] LABS: INR 1.19 (0.85-1.15); PROTHROMBIN TIME 12.8 SEC (9.6-11.6)
[2023-04-16] MEDS: GENTAMICIN 120 MG IN 100ML NS 100 ML IV SCH (18:46)
[2023-04-17] MEDS: NAFCILLIN 2GM+ NS 100ML 100 ML IV SCH ×6 (03:30→23:23)
[2023-04-17 04:00] VITALS: BP 123/77
[2023-04-17 04:49] LABS: ALBUMIN 1.2 g/dL (3.5-5.0); CREATININE 1.3 mg/dL (0.5-1.5); POTASSIUM 3.4 mmol/L (3.5-5.1)
[2023-04-17] MEDS: POTASSIUM CHLORIDE 20MEQ/100ML 100 ML IV PRN ×3 (05:38→21:56)
[2023-04-17] MEDS: INSULIN HUMULIN R 100 UNIT/ML 3ML SQ SCH ×4 (06:09→21:00)
[2023-04-17 07:00] VITALS: BP 175/64
[2023-04-17] MEDS: MIDODRINE HCL 5 MG TABLET PO SCH ×3 (07:36→21:00)
[2023-04-17] MEDS: FONDAPARINUX SODIUM 7.5 MG/0.6 ML SQ SCH (07:46)
[2023-04-17] MEDS: SIMETHICONE 80 MG TAB.CHEW PO SCH ×3 (07:46→21:50)
[2023-04-17] MEDS: PANTOPRAZOLE 40 MG/VIAL IVP SCH ×2 (07:46→20:42)
[2023-04-17] MEDS: BALSAM PERU/CASTOR OIL 60 GM TUBE TP SCH ×3 (08:15→21:52)
[2023-04-17 11:00] VITALS: BP 144/79
[2023-04-17 12:17] VITALS: BP 155/66
[2023-04-17] MEDS ORDERED: METOPROLOL TARTRATE 1 MG/ML 5ML VIAL IV SCH (12:42)
[2023-04-17 16:20] VITALS: BP 126/67
[2023-04-17] MEDS ORDERED: DIATR MEGLU/DIATRIZOATE SODIUM 30 ML BOTTLE ONE (17:20)
[2023-04-17] MEDS: GENTAMICIN 120 MG IN 100ML NS 100 ML IV SCH (18:23)
[2023-04-17] MEDS ORDERED: IOHEXOL 350 MG/ML 100ML INFUS..BTL IV ONE (19:43)
[2023-04-17 20:00] VITALS: BP 137/76
[2023-04-17 20:42] LABS: MAGNESIUM 1.4 mg/dL (1.80-2.40); POTASSIUM 3.3 mmol/L (3.5-5.1)
[2023-04-17] MEDS: MAGNESIUM 2GM PREMIX 50ML 50 ML IV SCH ×2 (20:49→21:55)
[2023-04-17] MEDS: METOCLOPRAMIDE 10 MG/2 ML VIAL IVP SCH (21:51)
[2023-04-18] VITALS: BP 130/76
[2023-04-18] MEDS: POTASSIUM CHLORIDE 20MEQ/100ML 100 ML IV PRN ×2 (01:20→06:05)
[2023-04-18] MEDS: NAFCILLIN 2GM+ NS 100ML 100 ML IV SCH ×4 (03:48→15:50)
[2023-04-18 04:00] VITALS: BP 128/78
[2023-04-18 04:53] LABS: BASOPHILS % (AUTO) 0.4 % (0.0-5.0); EOSINOPHILS % (AUTO) 4.8 % (0.0-8.0); HEMATOCRIT 34.4 % (42-54); LYMPHOCYTES % (AUTO) 11.7 % (21.0-51.0); MEAN CORPUSCULAR HEMOGLOBIN 29.7 pg (27.0-33.0); MEAN CORPUSCULAR HGB CONC 32.8 g/dL (32.0-36.0); MEAN CORPUSCULAR VOLUME 90.5 fL (79-99); MONOCYTES % (AUTO) 5.4 % (3.0-13.0); NEUTROPHILS % (AUTO) 77.4 % (40.0-77.0); PLATELET COUNT (AUTO) 148 K/uL (130-400); WHITE BLOOD COUNT (AUTO) 9.5 K/uL (4.8-10.8)
[2023-04-18 05:05] LABS: ALBUMIN 1.1 g/dL (3.5-5.0); CREATININE 1.3 mg/dL (0.5-1.5); PHOSPHORUS 3.1 mg/dL (2.5-4.9); POTASSIUM 3.9 mmol/L (3.5-5.1); TOTAL PROTEIN, SERUM 4.9 g/dL (6.0-8.3)
[2023-04-18] MEDS: METOCLOPRAMIDE 10 MG/2 ML VIAL IVP SCH ×2 (05:56→14:13)
[2023-04-18] MEDS: INSULIN HUMULIN R 100 UNIT/ML 3ML SQ SCH ×3 (05:56→16:13)
[2023-04-18 07:00] VITALS: BP_SYST 134; BP_SYST 143; BP_DIAS 75; BP_DIAS 79
[2023-04-18] MEDS: PANTOPRAZOLE 40 MG/VIAL IVP SCH (07:42)
[2023-04-18] MEDS: SIMETHICONE 80 MG TAB.CHEW PO SCH ×2 (07:42→14:13)
[2023-04-18] MEDS: BALSAM PERU/CASTOR OIL 60 GM TUBE TP SCH ×2 (07:43→14:13)
[2023-04-18] MEDS ORDERED: METOPROLOL TARTRATE 25 MG TAB PO SCH (09:00)
[2023-04-18] MEDS: MIDODRINE HCL 5 MG TABLET PO SCH ×2 (09:00→14:00)
[2023-04-18] MEDS ORDERED: FUROSEMIDE 40MG VIAL IV SCH (09:30)
[2023-04-18] MEDS ORDERED: SPIRONOLACTONE 25 MG TAB PO SCH (09:30)
[2023-04-18] MEDS: FONDAPARINUX SODIUM 7.5 MG/0.6 ML SQ SCH (09:31)
[2023-04-18 11:00] VITALS: BP 128/77
[2023-04-18 16:00] VITALS: BP 134/75
[2023-04-18] MEDS: GENTAMICIN 120 MG IN 100ML NS 100 ML IV SCH (17:21)
== END 2023-04-18 18:50 | DRG 853 ==
LOC: EDH 04:44 → EDHIP 07:19 → 2BH 18:50 → 2AH 04-09 06:42
PROVIDERS: ADMIT Internal Medicine; ATTEND Internal Medicine
PROC: 30233N1 Transfusion of Nonautologous Red Blood Cells into Peripheral Vein, Percutaneous Approach (ICD-10-PCS; 2023-04-05)
PROC: 0W9D00Z Drainage of Pericardial Cavity with Drainage Device, Open Approach (ICD-10-PCS; principal; 2023-04-05 20:15)
PROC: 02HV33Z Insertion of Infusion Device into Superior Vena Cava, Percutaneous Approach (ICD-10-PCS; 2023-04-16)
DX: A41.01 Sepsis due to Methicillin susceptible Staphylococcus aureus (principal); I33.0 Acute and subacute infective endocarditis; J95.2 Acute pulmonary insufficiency following nonthoracic surgery; J18.9 Pneumonia, unspecified organism; R65.21 Severe sepsis with septic shock; K72.00 Acute and subacute hepatic failure without coma; R57.0 Cardiogenic shock; J96.01 Acute respiratory failure with hypoxia; I31.4 Cardiac tamponade; D68.4 Acquired coagulation factor deficiency; C22.0 Liver cell carcinoma; I31.39 Other pericardial effusion (noninflammatory); I82.622 Acute embolism and thrombosis of deep veins of left upper extremity; I50.30 Unspecified diastolic (congestive) heart failure; N17.9 Acute kidney failure, unspecified; R18.8 Other ascites; Z20.822 Contact with and (suspected) exposure to COVID-19; I35.8 Other nonrheumatic aortic valve disorders; D64.9 Anemia, unspecified; D75.829 Heparin-induced thrombocytopenia, unspecified; E11.65 Type 2 diabetes mellitus with hyperglycemia; E78.00 Pure hypercholesterolemia, unspecified; E83.51 Hypocalcemia; E87.6 Hypokalemia; I07.1 Rheumatic tricuspid insufficiency; I11.0 Hypertensive heart disease with heart failure; I25.10 Atherosclerotic heart disease of native coronary artery without angina pectoris; I35.1 Nonrheumatic aortic (valve) insufficiency; R32 Unspecified urinary incontinence; T45.515A Adverse effect of anticoagulants, initial encounter; Z66 Do not resuscitate; Z74.01 Bed confinement status; Z79.899 Other long term (current) drug therapy; Z85.05 Personal history of malignant neoplasm of liver; Z89.429 Acquired absence of other toe(s), unspecified side
CPT/HCPCS: 36415; 36430; 36600; 71045; 71250; 74018; 74176; 74177; 76705; 80048; 80053; 80170; 80202; 81001; 82140; 82150; 82270; 82306; 82435; 82550; 82803; 82945; 82947; 82948; 83605; 83615; 83690; 83735; 83874; 83880; 83986; 84100; 84132; 84145; 84157; 84295; 84443; 84478; 84484; 85007; 85014; 85018; 85025; 85027; 85610; 85730; 86850; 86900; 86901; 86923; 87040; 87071; 87076; 87077; 87088; 87116; 87186; 87205; 87206; 87635; 87804; 89051; 93005; 93306; 93312; 93970; 93971; 94660; 97039; 99291; 99292; A4344; A7048; C1894; C9113; G0378; J0171; J0330; J0610; J0690; J0692; J1580; J1644; J1652; J1815; J1940; J2001; J2175; J2185; J2250; J2310; J2354; J2370; J2405; J2765; J3010; J3370; J3430; J3475; J3480; J3490; J7030; J7040; J7050; J7070; J7131; P9016; P9046; Q9963; Q9967